=== PATIENT | male | born 1960 | race African-American/Black ===

== ENCOUNTER 2018-10-05 22:09 | Emergency (ER) | payer OTHER ==
[~2018-10-05] VITALS: Ht 182.9 cm; Wt 95.3 kg
[2018-10-05 22:59] LABS: AMP/METHAMP POSITIVE (Negative); BARBITURATES Negative (Negative); BENZODIAZEPINES Negative (Negative); COCAINE Negative (Negative); METHADONE Negative (Negative); OPIATES Negative (Negative); PCP Negative (Negative)
[2018-10-05 23:39] LABS: ABSOLUTE NEUTROPHILS 2.3 thou/uL (1.4-8.2); BASOPHILS 0.7 % (0.0-2.0); EOSINOPHILS 3.9 % (0.0-3.0); HEMATOCRIT 38.4 % (42.0-52.0); HEMOGLOBIN 12.4 gm/dL (14.0-18.0); LYMPHOCYTES 36.5 % (24.0-44.0); MCH 26.4 pg (26.0-34.0); MCHC 32.2 g/dL (28.0-37.0); MCV 82.1 fL (80.0-100.0); MONOCYTES 8.9 % (1.0-8.0); PLATELET COUNT 186 thou/uL (150-400); RBC 4.68 mil/uL (4.50-6.00); RDW 18.5 % (10.5-14.5); WBC 4.5 thou/uL (4.0-11.0)
[2018-10-05 23:47] LABS: ANION GAP 9 mmol/L (7-16); BUN 15 mg/dL (7-18); CALCIUM 9.4 mg/dL (8.5-10.1); CHLORIDE 103 mmol/L (98-107); CO2 28 mmol/L (21-32); CREATININE 1.1 mg/dL (0.7-1.3); GLUCOSE 140 mg/dL (74-106); POTASSIUM 3.5 mmol/L (3.5-5.1); SODIUM 140 mmol/L (136-145)
[2018-10-05 23:56] LABS: TROPONIN-I <0.06 ng/mL (<0.06)
[2018-10-06 02:45] VITALS: BP 103/70
--- NOTE | 2018-10-06 08:17 | EKG ---
[place] [address] [facility] [place] [address] ELECTROCARDIOGRAM REPORT Name: MABEL SHAH Room #: DEP MITCHELL Torres#: [id number] ������������������ Admission: 10/05/18 ������������������ Attend Phys: Discharge: 10/06/18 ������������������ Date of : 58 Report #: [id number] ����������������������������������������������������������������� [id number] THIS REPORT FOR: //name// [facility] ED Test Date: 2018-10-05 Test Time: 23:37:39 Pat Name: MABEL SHAH Department: Room: Gender: Photovoltaic Technician: jacqueline : 1960 Requested By: Shavon Trejo Order Number: [id number] MD: Otoniel Winters Measurements Intervals [place] Rate: 91 P: 47 TN: 171 QRS: -4 QRSD: 105 T: 125 QT: 399 QTc: 492 Interpretive Statements Sinus rhythm Probable left atrial enlargement LVH with secondary repolarization abnormality Borderline prolonged QT interval No previous ECG available for comparison Electronically Signed On 10-06-2018 8:17:08 CDT by Otoniel Winters [email or web address] ��������������������������������������������� <ELECTRONICALLY SIGNED> ���������������������������������������� By: Otoniel Winters MD ��������������������������������������������� 10/06/18 0817 [id number] Otoniel Winters MD /EZIO
== END 2018-10-06 02:47 | disposition home or self-care (01) ==
LOC: ER 22:09
PROVIDERS: Emergency Medicine
DX: R06.00 Dyspnea, unspecified (principal); F15.10 Other stimulant abuse, uncomplicated; I50.9 Heart failure, unspecified; J45.909 Unspecified asthma, uncomplicated

== ENCOUNTER 2019-06-29 19:57 | Inpatient (IN) | payer OTHER ==
[~2019-06-29] VITALS: Ht 170.2 cm; Wt 119.7 kg
[2019-06-29 20:03] VITALS: BP 126/102
[2019-06-29 20:24] LABS: ABSOLUTE NEUTROPHILS 4.3 thou/uL (1.4-8.2); BASOPHILS 0.7 % (0.0-2.0); EOSINOPHILS 1.8 % (0.0-3.0); HEMATOCRIT 38.2 % (42.0-52.0); HEMOGLOBIN 12.2 gm/dL (14.0-18.0); LYMPHOCYTES 20.3 % (24.0-44.0); MCH 27.4 pg (26.0-34.0); MCHC 31.9 g/dL (28.0-37.0); MCV 85.9 fL (80.0-100.0); MONOCYTES 9.9 % (1.0-8.0); PLATELET COUNT 146 thou/uL (150-400); POLYS 67.3 % (36.0-66.0); RBC 4.45 mil/uL (4.50-6.00); RDW 15.7 % (10.5-14.5); WBC 6.4 thou/uL (4.0-11.0)
[2019-06-29 20:47] LABS: ALBUMIN 3.3 g/dL (3.4-5.0); ANION GAP 8 mmol/L (7-16); CALCIUM 8.9 mg/dL (8.5-10.1); CHLORIDE 105 mmol/L (98-107); CO2 28 mmol/L (21-32); CREATININE 1.1 mg/dL (0.7-1.3); GLUCOSE 104 mg/dL (74-106); POTASSIUM 4.7 mmol/L (3.5-5.1); SGOT 48 U/L (15-37); SGPT < 6 U/L (30-65); SODIUM 141 mmol/L (136-145); TOTAL BILIRUBIN 1.5 mg/dL (<0.1-1.0); TOTAL PROTEIN 8.5 g/dL (6.4-8.2)
[2019-06-29 20:51] LABS: BUN < 1 mg/dL (7-18)
[2019-06-29 23:19] VITALS: BP 123/86
[2019-06-30 00:05] VITALS: BP 138/74
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
[2019-06-30 03:26] LABS: ANION GAP 9 mmol/L (7-16); BUN 10 mg/dL (7-18); CALCIUM 8.6 mg/dL (8.5-10.1); CHLORIDE 105 mmol/L (98-107); CHOLESTEROL 99 mg/dL (<200); CO2 28 mmol/L (21-32); CREATININE 1.2 mg/dL (0.7-1.3); GLUCOSE 174 mg/dL (74-106); HDL CHOLESTEROL 41 mg/dL (>40); LDL CHOLESTEROL 53 mg/dL (<100); SODIUM 142 mmol/L (136-145); TC:HDL 2.4 Ratio (Not establshd); TRIGLYCERIDE 28 mg/dL (<150); TROPONIN-I <0.06 ng/mL (<0.06); VLDL 6 mg/dL (<40)
[2019-06-30] MEDS ORDERED: LOSARTAN POTASS50 MG PO (03:44)
[2019-06-30] MEDS ORDERED: PANTOPRAZOLE SO40 M1 PO (03:44)
[2019-06-30] MEDS ORDERED: CARVEDILOL6.25 M1 PO (03:45)
[2019-06-30] MEDS ORDERED: SPIRONOLACTONE25 MG PO (03:48)
[2019-06-30] MEDS ORDERED: NEURONTIN 300300 M1 PO (03:49)
[2019-06-30] MEDS ORDERED: DESYREL150 MG PO (03:52)
[2019-06-30 04:04] LABS: POTASSIUM 3.7 mmol/L (3.5-5.1)
[2019-06-30 04:05] LABS: SERUM ASSESSMENT Clear
[2019-06-30 05:00] VITALS: BP 123/90
[2019-06-30 05:26] LABS: URINE BILIRUBIN NEGATIVE (Negative); URINE BLOOD NEGATIVE (Negative); URINE CLARITY CLEAR; URINE COLOR YELLOW; URINE GLUCOSE-RANDOM* NEGATIVE (Negative); URINE KETONES NEGATIVE (Negative); URINE LEUKOCYTES-REFLEX NEGATIVE (Negative); URINE NITRITE-REFLEX NEGATIVE (Negative); URINE PROTEIN (DIPSTICK) NEGATIVE (Negative)
[2019-06-30 08:06] VITALS: BP 115/87
--- NOTE | 2019-06-30 09:00 | EKG ---
[address] [place] [address] ELECTROCARDIOGRAM REPORT Name: ALYSSAMABEL Room #: 209-P ADM IN M.R.#: [id number] Admission: 06/29/19 Attend Phys: Po Green MD Discharge: Date of : 58 Report #: [id number] THIS REPORT FOR: //name// [facility] ED Test Date: 2019-06-29 Test Time: 21:07:35 Pat Name: MABEL SHAH Department: Room: 209 Gender: M Internal Affairs Commander: YAN : 1960 Requested By: Luana Mehta Order Number: [id number] MD: Madi Peters Measurements Intervals [place] Rate: 113 P: 39 MT: 173 QRS: -7 QRSD: 114 T: 146 QT: 340 QTc: 467 Interpretive Statements Sinus tachycardia Ventricular tachycardia, unsustained Probable left atrial enlargement Inferior infarct, old Nonspecific T wave abnormality Compared to ECG 10/05/2018 23:37:39 Ventricular ectopy is now present inferior Q waves are more prominent Electronically Signed On 06-30-2019 8:59:42 INJECTION MOLDING SUPERVISOR by Madi Peters [email or web address] <ELECTRONICALLY SIGNED> By: Madi Peters MD, [facility] 06/30/19 0859 06 06 Madi Peters MD, [facility] /EPI
--- NOTE | 2019-06-30 09:21 | 2DMMODE ---
[facility] [address] [place] [address] 2 D/M-MODE ECHOCARDIOGRAM Name: MABEL SHAH Room #: 209-P [facility] IN .R.#: [id number] Admission: 06/29/19 Attend Phys: Po Green, Discharge: Date of : 58 Report #: [id number] THIS REPORT FOR: //name// APPROVED REPORT Study performed: 06/30/2019 08:31:20 EXAM: Comprehensive 2D, Doppler, and color-flow Echocardiogram Patient Location: Echo lab Room #: 209 Status: routine BSA: 2.31 HR: 110 bpm BP: 123/90 mmHg Rhythm: Tachycardia Other Information Study Quality: Good Indications Congestive Heart Failure COPD Dyspnea CAD Cardiomyopathy Chest Pain Hypertension/HDD 2D Dimensions RVDd: 47.93 mm IVSd: 9.19 (7-11mm) LVOT Diam: 21.01 (18-24mm) LVDd: 71.78 mm PWd: 8.20 (7-11mm) Ascending Ao: 33.96 (22-36mm) LVDs: 68.25 (25-40mm) Aortic Root: 32.82 mm IVC: 33.00 mm Volumes Left Atrial Volume (Systole) Single Plane 4CH: 106.29 mL Single Plane 2CH: 137.46 mL LA ESV Index: 58.00 mL/m2 Aortic Valve AoV Peak Home.: 1.11 m/s AO Peak Gr.: 4.89 mmHg LVOT Max P.01 mmHg LVOT Max V: 0.71 m/s [facility] [address] [place] [address] 2 D/M-MODE ECHOCARDIOGRAM Name: MABEL SHAH Room #: 209-P [facility] IN M.R.#: [id number] Admission: 06/29/19 Attend Phys: Po Green, Discharge: Date of : 58 Report #: [id number] OFELIA Vmax: 2.22 cm2 Pulmonary Valve PV Peak Home.: 0.96 m/s PV Peak Gr.: 3.79 mmHg Tricuspid Valve TR Peak Home.: 2.87 m/s TR Peak Gr.: 33.03 mmHg PA Pressure: 48.00 mmHg Left Ventricle Left ventricle is dilated. There is severe global hypokinesis of the left ventricle. There is normal left ventricular wall thickness. Left ventricular ejection fraction is severely decreased. LVEF is 10-15%. Severe diastolic dysfunction Right Ventricle Right ventricle is dilated. Right ventricle is hypokinetic. Atria Left atrium is dilated. Right atrium is dilated. Aortic Valve The aortic valve is normal in structure. Trace aortic regurgitation. There is no aortic valvular stenosis. Mitral Valve The mitral valve is normal in structure. Moderate mitral regurgitation. No evidence of mitral valve stenosis. Tricuspid Valve The tricuspid valve is normal in structure. There is moderate tricuspid regurgitation. Estimated PAP 48 mmHg. There is moderate pulmonary hypertension. Pulmonic Valve The pulmonary valve is normal in structure. Mild pulmonic regurgitation. Great Vessels The aortic root is normal in size. The inferior vena cava is dilated with no inspiratory collapse. Pericardium There is no pericardial effusion. [facility] [address] [address] 2 D/M-MODE ECHOCARDIOGRAM Name: MABEL SHAH Room #: 209-P ADM IN M.R.#: [id number] Admission: 06/29/19 Attend Phys: Po Green, Discharge: Date of : 58 Report #: [id number] <Conclusion> Left ventricular ejection fraction is severely decreased. LVEF is 10-15%. Severe diastolic dysfunction Four chamber enlargement. RV hypokinesis The aortic valve is normal in structure. Trace aortic regurgitation, no stenosis. The mitral valve is normal in structure. Moderate mitral regurgitation. There is moderate tricuspid regurgitation. Estimated pulmonary artery pressure of 48 mmHg. There is no pericardial effusion. <ELECTRONICALLY SIGNED> By: Madi Peters MD, FACC 06/30/19920 0 0 Madi Peters MD, FACC /INF
--- NOTE | 2019-06-30 09:51 | NUR ---
ASSUMED CARE THIS AM. SITTING IN BED, FLAT AFFECT. ST ON MONITOR. DOES NOT COMPLAIN OF PAIN BUT GRUNTS AND GROANS. WOUNDS TO RLE X 3, 2 WITH DRESSING CDI AND ONE OPEN TO AIR AND SCABBING OVER.. DOWN TO ULTRASOUND FOR ECHO VIA WHEELCHAIR.
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
[2019-06-30 11:08] VITALS: BP 104/73
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
[2019-06-30 17:10] VITALS: BP 124/83
[2019-06-30 19:15] VITALS: BP 110/78
[2019-07-01 00:05] LABS: GLYCOHEMOGLOBIN (HGB A1C) 6.5 % (4.8-5.6)
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
[2019-07-01 03:37] VITALS: BP 109/82
[2019-07-01 07:36] VITALS: BP 115/86
[2019-07-01 08:44] LABS: CALCIUM 9.1 mg/dL (8.5-10.1); CREATININE 1.2 mg/dL (0.7-1.3); POTASSIUM 4.2 mmol/L (3.5-5.1)
--- NOTE | 2019-07-01 09:56 | NUR ---
AAOX4. CALM, COOPERATIVE. LEGS ELEVATED IN BEDSIDE CHAIR. RA SAT 96%. LABS DRAWN. DIURESING PER URINAL. FIRST DEGREE AV BLOCK, ST PER TELE. WILL CONTINUE TO FOLLOW CLOSELY.
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
[2019-07-01 12:54] VITALS: BP 110/73
[2019-07-01 16:14] VITALS: BP 115/70
--- NOTE | 2019-07-01 18:34 | NUR ---
ASSUMMED PT CARE AT [place] [id number]. PT A&O X4. ASSESSMENT CHARTED. FALL PRECAUTIONS IN PLACE. PT DENIES HAVING CHEST PAIN. PT DENIES HAVING SOB. PT DENIES HAVING ACUTE PAIN. VITAL SIGNS STABLE. PT AMBULATES STEADY/INDEPENDENT. EDUCATED PT ABOUT POC AND FLUID RESTRICTION. PT STATED UNDERSTANDING AND DENIED HAVING FURTHER QUESTIONS. PT COMFORTABLE IN BED. PT DENIES HAVING FURTHER CONCERNS AT THIS TIME.
[2019-07-01 19:32] VITALS: BP 114/75
--- NOTE | 2019-07-02 01:54 | NUR ---
ASSESSMENTS CHARTED, MEDS GIVEN CHARTED. PATIENT STATES HE IS BREATHING EASIER TODAY THAN YESTERDAY. PATIENT WAS OFF UNIT AT START OF SHIFT TO USE VELIA. PATIENT RETURNED WITH SECURITY. ON ROOM AIR, FLUID RESTRICTIONS IN PLACE. PATIENT REQUESTED TESTING FOR STD'S. AWAITING RESULTS. PLAN OF CARE TO CONTINUE DIURESING, WOUND CARE.
[2019-07-02 05:03] VITALS: BP 108/75
[2019-07-02 05:25] LABS: CALCIUM 9.1 mg/dL (8.5-10.1); CREATININE 1.2 mg/dL (0.7-1.3); POTASSIUM 3.9 mmol/L (3.5-5.1)
[2019-07-02 07:45] VITALS: BP 96/72
[2019-07-02] MEDS ORDERED: COZAAR 25 MG TA25 M2 PO (09:04)
[2019-07-02] MEDS ORDERED: ASPIR 8181 MG PO (09:04)
[2019-07-02] MEDS ORDERED: DEMADEX20 MG PO (09:05)
[2019-07-02 09:07] LABS: HAV IgM AB (ANTI-HAV IgM) Negative (Negative); HEPATITIS B SURFACE AG Negative (Negative); HEPATITIS C VIRUS AB >11.0 (0.0-0.9); HIV ANTIBODY Non Reactive (Non Reactive)
[2019-07-02 09:13] VITALS: BP 96/72
[2019-07-02 10:17] VITALS: BP 96/72
--- NOTE | 2019-07-02 10:17 | NUR ---
Case management met with the pt yesterday and again today. He is a&ox4 and lives indep in an apt alone. He is disabled due to EF 15% and [place] care and scripts. He has hx of substance abuse and has a mental health cm per Leodan De Guzman. Leodan can help with transport to appointments. The pt's next of kin contact is his sister but they have limited contact. The pt has a rwalker at home as he faitgues and is easily sob. Pt dcing home this morning. Cab ride home provided and scripts filled at the outpt [facility] this am. Copays vouchered.
--- NOTE | 2019-07-02 11:44 | NUR ---
PT CARE ASSUMED APPROX 0700. ASSESSMENTS CHARTED. DENIES PAIN AND SOA. VSS. UP WITH STEADY GAIT. DISCHARGED AT THIS TIME. DISCHARGE PAPERWORK REVIEWED WITH PT BY THIS NURSE AND CV PACKAGING ASSOCIATE. PT DENIE QUESTIONS OR CONCERNS REGARDING POST HOSPITAL CARE. MEDS FILLED AT [facility] AND CAB VOUVHER GIVEN. IV OUT, TELE OFF. BLE WOUND DSGs CDI AND PT REFUSED REMOVAL. ESCORTED OUT BY HOSPITAL STAFF. THIS NURSE F/U ON GETTING TO ED TO FILL VOUCHER.
== END 2019-07-02 11:12 | disposition home or self-care (01) | DRG 292 ==
LOC: ER 19:57 → EROBS 22:46 → 2N 22:46
PROVIDERS: Nurse Practitioner Adult Health; Nurse Practitioner Family; Physician Assistant; ADMIT Hospitalist
DX: I11.0 Hypertensive heart disease with heart failure (principal); L97.819 Non-pressure chronic ulcer of other part of right lower leg with unspecified severity; J44.9 Chronic obstructive pulmonary disease, unspecified; I50.23 Acute on chronic systolic (congestive) heart failure; I25.10 Atherosclerotic heart disease of native coronary artery without angina pectoris; S81.801A Unspecified open wound, right lower leg, initial encounter; G62.9 Polyneuropathy, unspecified; R73.9 Hyperglycemia, unspecified; F17.210 Nicotine dependence, cigarettes, uncomplicated; R07.89 Other chest pain; Z60.2 Problems related to living alone; I95.9 Hypotension, unspecified; Z71.6 Tobacco abuse counseling; Z91.19 Patient's noncompliance with other medical treatment and regimen; I25.2 Old myocardial infarction; W34.09XA Accidental discharge from other specified firearms, initial encounter; Y93.89 Activity, other specified; Y92.89 Other specified places as the place of occurrence of the external cause; Y99.8 Other external cause status
CPT/HCPCS: 10081

== ENCOUNTER 2019-08-05 20:13 | Emergency (ER) | payer OTHER ==
[~2019-08-05] VITALS: Ht 177.8 cm; Wt 130.9 kg
[~2019-08-05 20:13] MED LIST: ASPIR 8181 MG PO; CARVEDILOL6.25 M1 PO; COZAAR 25 MG TA25 M2 PO; DEMADEX20 MG PO; DESYREL150 MG PO; LOSARTAN POTASS50 MG PO; NEURONTIN 300300 M1 PO; PANTOPRAZOLE SO40 M1 PO; SPIRONOLACTONE25 MG PO
[2019-08-05 21:27] LABS: ABSOLUTE NEUTROPHILS 3.3 thou/uL (1.4-8.2); BASOPHILS 0.6 % (0.0-2.0); EOSINOPHILS 2.7 % (0.0-3.0); HEMOGLOBIN 10.5 gm/dL (14.0-18.0); MCH 26.3 pg (26.0-34.0); MONOCYTES 8.9 % (1.0-8.0); PLATELET COUNT 175 thou/uL (150-400); POLYS 71.8 % (36.0-66.0); RDW 17.1 % (10.5-14.5); WBC 4.6 thou/uL (4.0-11.0)
[2019-08-05 21:32] LABS: ANION GAP 7 mmol/L (7-16); BUN 15 mg/dL (7-18); CHLORIDE 106 mmol/L (98-107); CO2 29 mmol/L (21-32); CREATININE 1.2 mg/dL (0.7-1.3); GLUCOSE 93 mg/dL (74-106); POTASSIUM 3.7 mmol/L (3.5-5.1); SODIUM 142 mmol/L (136-145)
[2019-08-05 21:42] LABS: ALBUMIN 3.5 g/dL (3.4-5.0); SGOT 24 U/L (15-37); SGPT 20 U/L (30-65); TOTAL BILIRUBIN 1.8 mg/dL (<0.1-1.0); TOTAL PROTEIN 8.4 g/dL (6.4-8.2); TROPONIN-I <0.06 ng/mL (<0.06)
[2019-08-05] MEDS ORDERED: TESSALON PERLE100 MG PO (22:30)
[2019-08-05 23:14] VITALS: BP 106/55
--- NOTE | 2019-08-06 08:43 | EKG ---
[place] [address] [place] [address] ELECTROCARDIOGRAM REPORT Name: MABEL SHAH Room #: DEP MITCHELL Torres#: [id number] Admission: 08/05/19 Attend Phys: Discharge: 08/05/19 Date of : 58 Report #: [id number] THIS REPORT FOR: //name// [facility] ED Test Date: 2019-08-05 Test Time: 20:29:56 Pat Name: MABEL SHAH Department: Room: Gender: Track Layer: [facility] : 1960 Requested By: Luana Mehta Order Number: [id number] MD: Madi Peters Measurements Intervals [place] Rate: 109 P: 44 MN: 171 QRS: 12 QRSD: 107 T: 135 QT: 342 QTc: 461 Interpretive Statements Sinus tachycardia Paired ventricular premature complexes Left atrial enlargement Nonspecific T abnormalities, lateral leads Compared to ECG 06/29/2019 21:07:35 no significant change was found Electronically Signed On 08-06-2019 8:42:48 PROPULSION MACHINERY SERVICE ENGINEER by Madi Peters [email or web address] <ELECTRONICALLY SIGNED> By: Madi Peters MD, [facility] 08/06/1943 28 28 Madi Peters MD, FACC /EPI
--- NOTE | 2019-08-07 07:16 | NUR ---
THIS RN CALLED PATIENT'S PHONE NUMBER LISTED. ONLY GETTING BUSY SIGNAL. CALLED THE NEXT OF KIN LISTED (MARILUZ AGUILERA) WHO IS PATIENT'S SISTER. THIS RN ASKED FOR SISTER TO RELAY THE INFORMATION FOR PATIENT TO RETURN A PHONE CALL OR TO LET THE PATIENT KNOW THAT HE HAD A POSITIVE BLOOD CULTURE (THAT IT COULD POTENTIALLY BE A CONTAMINATED SPECIMEN), BUT THE RECOMMENDATION IS FOR PATIENT TO RETURN TO AN ER TO BE EVALUATED BASED ON A POSITIVE BLOOD CULTURE. SISTER STATES UNDERSTANDING AND WILL NOTIFY PATIENT.
== END 2019-08-05 23:14 | disposition home or self-care (01) ==
LOC: ER 20:13
PROVIDERS: Physician Assistant
DX: R06.02 Shortness of breath (principal); R05 Cough; I11.0 Hypertensive heart disease with heart failure; I50.9 Heart failure, unspecified; J44.9 Chronic obstructive pulmonary disease, unspecified; I25.2 Old myocardial infarction; G62.9 Polyneuropathy, unspecified

== ENCOUNTER 2021-07-12 04:03 | Emergency (ER) | payer OTHER ==
[~2021-07-12] VITALS: Ht 162.6 cm; Wt 81.7 kg
--- NOTE | ~2021-07-12 | EMS ---
[address] [address] EMS Patient Care Report Name: MABEL SHAH Room #: DEP MITCHELL Torres#: [id number] Admission: 07/12/21 Attend Phys: Discharge: 07/12/21 Date of : 58 Report #: [id number] THIS REPORT FOR: //name// Report Transmitted: 07/12/2021 11:02 EMS Care Summary [facility] Incident [id number] @ 07/12/2021 03:29 Incident Location [address] [place] [address] Patient MABEL SHAH Male, 60 Years 1960 Patient Address [address] [place], [place] [id number] Patient History Asthma,Congestive Heart Failure (CHF),Chronic Obstructive Pulmonary Disease (COPD),Diabetes,Amputee,Myocardial Infarction ([place]),Novel Coronavirus (COVID-19), Patient Allergies No known allergies, Patient Medications Albuterol, Gabapentin, Carvedilol, Lisinopril, Hydrochlorothiazide (Hctz), Furosemide, Chief Complaint SOB Disposition Transported No Lights/[place] Dispatch Reason [facility]. [facility] [address] [place] [address] EMS Patient Care Report Name: MABEL SHAH Room #: DEP SergioOliver#: [id number] Admission: 07/12/21 Attend Phys: Discharge: 07/12/21 Date of : 58 Report #: [id number] arrival to scene, patient was found sitting in his motorized wheelchair at his front door. He explained to EMS that he felt like he was having difficulty breathing. Upon further questioning regarding today's episode of SOB, patient begins to explain the last several years of his medical history. Patient transferred himself from motorized wheelchair to cot without difficulty, denying assistance from crew (patient is double amputee). As patient was being secured to cot with safety belts, wheeled to the ambulance, and having an initial set of vitals obtained, all the patient seemed to worry about is his motorized wheelchair, even though his family member said they would bring it inside. Even after squad 51 crew suggested that the patient tell them more about today's episode, patient continued to speak about his motorized wheelchair. Initial set of vitals were within normal ranges and lung sounds were clear. Patient only wants to rest during the transfer to hospital and has no other concerns or complaints. Patient remains stable throughout transfer to hospital and verbal report is delivered to triage nurse upon arrival to emergency department. Unable to obtain face sheet due to staffing availablility. Initial Vitals @03:51P: 69,R: 22,BP: 102/59,EtCO2: 34,SpO2: 98, @03:57P: 66,R: 20,BP: 105/66,Pain: 0/10,GCS: 15,EtCO2: 40,SpO2: 95,Revised Trauma: 12, @03:44P: 66,R: 24,BP: 98/71,Pain: 0/10,GCS: 15,SpO2: 95,Revised Trauma: 12, @03:45P: 79,R: 22,Pain: 0/10,GCS: 15,SpO2: 95,[place] Suspected: false Impression Acute Respiratory Distress (Dyspnea) Procedures @03:44 3-Lead ECG Response: UnchangedSucceeded Timeline 03:28,Call Received 03:28,Psap Call 03:29,Dispatched 03:35,En Route 03:35,Initial Responder On Scene 03:35,On Scene 03:36,At Patient 03:44,3-Lead ECG,Response: UnchangedSucceeded, 03:44,BP: 98/71 M,PULSE: 66,RR: 24 R,SPO2: 95 Ox,ETCO2: ,BG: ,PAIN: 0,GCS: 15, 03:45,BP: / M,PULSE: 79,RR: 22 R,SPO2: 95 Ox,ETCO2: ,BG: ,PAIN: 0,GCS: 15, 03:46,Depart Scene [facility] [address] [place] [address] EMS Patient Care Report Name: MABEL SHAH Room #: [facility] MITCHELL Torres#: [id number] Admission: 07/12/21 Attend Phys: Discharge: 07/12/21 Date of : 58 Report #: [id number] 03:51,BP: 102/59 M,PULSE: 69,RR: 22 R,SPO2: 98 Ox,ETCO2: 34 ,BG: ,PAIN: ,GCS: , 03:57,BP: 105/66 M,PULSE: 66,RR: 20 R,SPO2: 95 Ox,ETCO2: 40 ,BG: ,PAIN: 0,GCS: 15, 03:59,At Destination 04:18,Call Closed Disclaimer v1.1 Copyright 2020 [employer] This EMS Care Summary contains data elements from the applicable legal record (which may be displayed differently). It is designed to provide pertinent information for the following purposes: continuity of care, clinical quality, and state data reporting. The complete legal record is available to ED staff and administrators of the receiving hospital in [employer] Patient Tracker. All data is provided "as is."
--- NOTE | ~2021-07-12 | EMS ---
[address] [address] EMS Patient Care Report Name: MABEL SHAH Room #: DEP MITCHELL Torres#: [id number] Admission: 07/12/21 Attend Phys: Discharge: 07/12/21 Date of : 58 Report #: [id number] THIS REPORT FOR: //name// Report Transmitted: 07/12/2021 19:12 EMS Care Summary [facility] Incident [id number] @ 07/12/2021 03:29 Incident Location [address] [place] [address] Patient MABEL SHAH Male, 60 Years 1960 Patient Address [address] [place], [place] [id number] Patient History Asthma,Congestive Heart Failure (CHF),Chronic Obstructive Pulmonary Disease (COPD),Diabetes,Amputee,Myocardial Infarction ([place]),Novel Coronavirus (COVID-19), Patient Allergies No known allergies, Patient Medications Albuterol, Gabapentin, Carvedilol, Lisinopril, Hydrochlorothiazide (Hctz), Furosemide, Chief Complaint SOB Disposition Transported No Lights/[place] Dispatch Reason Bre[facility]. [facility] [address] [place] [address] EMS Patient Care Report Name: MABEL SHAH Room #: DEP SergioOliver#: [id number] Admission: 07/12/21 Attend Phys: Discharge: 07/12/21 Date of : 58 Report #: [id number] arrival to scene, patient was found sitting in his motorized wheelchair at his front door. He explained to EMS that he felt like he was having difficulty breathing. Upon further questioning regarding today's episode of SOB, patient begins to explain the last several years of his medical history. Patient transferred himself from motorized wheelchair to cot without difficulty, denying assistance from crew (patient is double amputee). As patient was being secured to cot with safety belts, wheeled to the ambulance, and having an initial set of vitals obtained, all the patient seemed to worry about is his motorized wheelchair, even though his family member said they would bring it inside. Even after squad 51 crew suggested that the patient tell them more about today's episode, patient continued to speak about his motorized wheelchair. Initial set of vitals were within normal ranges and lung sounds were clear. Patient only wants to rest during the transfer to hospital and has no other concerns or complaints. Patient remains stable throughout transfer to hospital and verbal report is delivered to triage nurse upon arrival to emergency department. Unable to obtain face sheet due to staffing availablility. Initial Vitals @03:51P: 69,R: 22,BP: 102/59,EtCO2: 34,SpO2: 98, @03:57P: 66,R: 20,BP: 105/66,Pain: 0/10,GCS: 15,EtCO2: 40,SpO2: 95,Revised Trauma: 12, @03:44P: 66,R: 24,BP: 98/71,Pain: 0/10,GCS: 15,SpO2: 95,Revised Trauma: 12, @03:45P: 79,R: 22,Pain: 0/10,GCS: 15,SpO2: 95,[place] Suspected: false Impression Acute Respiratory Distress (Dyspnea) Procedures @03:44 3-Lead ECG Response: UnchangedSucceeded @03:45 ALS Assessment Response: UnchangedSucceeded Timeline 03:28,Call Received 03:28,Psap Call 03:29,Dispatched 03:35,En Route 03:35,Initial Responder On Scene 03:35,On Scene 03:36,At Patient 03:44,3-Lead ECG,Response: UnchangedSucceeded, 03:44,BP: 98/71 M,PULSE: 66,RR: 24 R,SPO2: 95 Ox,ETCO2: ,BG: ,PAIN: 0,GCS: 15, 03:45,ALS Assessment,Response: UnchangedSucceeded, [address] [address] EMS Patient Care Report Name: ALYSSAMABEL Ramirez Room #: [facility] MITCHELL Torres#: [id number] Admission: 07/12/21 Attend Phys: Discharge: 07/12/21 Date of : 58 Report #: [id number] 03:45,BP: / M,PULSE: 79,RR: 22 R,SPO2: 95 Ox,ETCO2: ,BG: ,PAIN: 0,GCS: 15, 03:46,Depart Scene 03:51,BP: 102/59 M,PULSE: 69,RR: 22 R,SPO2: 98 Ox,ETCO2: 34 ,BG: ,PAIN: ,GCS: , 03:57,BP: 105/66 M,PULSE: 66,RR: 20 R,SPO2: 95 Ox,ETCO2: 40 ,BG: ,PAIN: 0,GCS: 15, 03:59,At Destination 04:18,Call Closed Disclaimer v1.1 Copyright 2020 [employer] This EMS Care Summary contains data elements from the applicable legal record (which may be displayed differently). It is designed to provide pertinent information for the following purposes: continuity of care, clinical quality, and state data reporting. The complete legal record is available to ED staff and administrators of the receiving hospital in ES's Patient Tracker. All data is provided "as is."
[~2021-07-12 04:03] MED LIST changes: +TESSALON PERLE100 MG PO
[2021-07-12 06:55] LABS: ABSOLUTE NEUTROPHILS 2.6 thou/uL (1.4-8.2); BASOPHILS 0.6 % (0.0-2.0); EOSINOPHILS 11.8 % (0.0-3.0); HEMATOCRIT 48.8 % (42.0-52.0); HEMOGLOBIN 15.5 gm/dL (14.0-18.0); LYMPHOCYTES 25.4 % (24.0-44.0); MCH 27.8 pg (26.0-34.0); MCHC 31.9 g/dL (28.0-37.0); MCV 87.4 fL (80.0-100.0); MONOCYTES 8.1 % (1.0-8.0); PLATELET COUNT 137 thou/uL (150-400); POLYS 54.1 % (36.0-66.0); RBC 5.58 mil/uL (4.50-6.00); RDW 18.2 % (10.5-14.5); WBC 4.7 thou/uL (4.0-11.0)
[2021-07-12 07:08] LABS: CALCIUM 8.9 mg/dL (8.5-10.1); CREATININE 1.7 mg/dL (0.7-1.3); POTASSIUM 3.8 mmol/L (3.5-5.1)
[2021-07-12 07:10] LABS: AMP/METHAMP Negative (Negative); BARBITURATES Negative (Negative); BENZODIAZEPINES Negative (Negative); COCAINE POSITIVE (Negative); METHADONE Negative (Negative); OPIATES Negative (Negative); PCP Negative (Negative)
[2021-07-12 07:13] LABS: ALBUMIN 3.4 g/dL (3.4-5.0); TOTAL BILIRUBIN 0.5 mg/dL (0.2-1.0); TOTAL PROTEIN 8.4 g/dL (6.4-8.2)
[2021-07-12] MEDS ORDERED: DOXYCYCLINE 10100 MG PO (07:21)
[2021-07-12 07:22] VITALS: BP 137/87
[2021-07-12 13:46] LABS: ANISOCYTOSIS 1+
--- NOTE | 2021-07-13 07:40 | EKG ---
[place] [address] [facility] [place] [address] ELECTROCARDIOGRAM REPORT Name: MABEL SHAH Room #: [facility] Brian#: [id number] Admission: 07/12/21 Attend Phys: Discharge: 07/12/21 Date of : 58 Report #: [id number] [facility] ED Test Date: 2021-07-12 Test Time: 06:39:29 Pat Name: MABEL SHAH Department: Room: Gender: M Resident Services Supervisor: jane : 1960 Requested By: Shavon Trejo Order Number: [id number] MD: Jesse Ray Measurements Intervals Peyton Rate: 70 P: 22 ID: 240 QRS: -29 QRSD: 116 T: 149 QT: 364 QTc: 393 Interpretive Statements Sinus rhythm Prolonged ID interval Nonspecific intraventricular conduction delay Repol abnrm suggests ischemia, anterolateral Baseline wander in lead(s) V2 Compared to ECG 08/05/2019 20:29:56 First degree AV block now present Intraventricular conduction delay now present Early repolarization now present Possible ischemia now present Sinus tachycardia no longer present Ventricular premature complex(es) no longer present Electronically Signed On 07-13-2021 7:40:15 FORGING ENGINEER by Jesse Ray [email or web address] <ELECTRONICALLY SIGNED> By: Jesse Ray MD, FACC 07/13/21 0740 [id number] [id number] Jesse Ray MD, FAC /EPI
== END 2021-07-12 07:32 | disposition home or self-care (01) ==
LOC: ER 04:03
PROVIDERS: Emergency Medicine
DX: R42 Dizziness and giddiness (principal); Z20.822 Contact with and (suspected) exposure to COVID-19; I11.0 Hypertensive heart disease with heart failure; I50.9 Heart failure, unspecified; J44.9 Chronic obstructive pulmonary disease, unspecified; G62.9 Polyneuropathy, unspecified; I25.2 Old myocardial infarction; Z79.82 Long term (current) use of aspirin; Z79.899 Other long term (current) drug therapy; Z79.891 Long term (current) use of opiate analgesic